=== PATIENT | male | born 1960 | race Caucasian/White ===

== ENCOUNTER 2017-01-24 15:57 | Inpatient (IN) | payer BC ==
--- NOTE | ~2017-01-24 | CR72 ---
[facility]. [facility] A Service of [facility] & [facility] RADIOLOGY TEXT RESULTS PATIENT: BIRD BROTHERS LOCATION: [facility] : 60 UNIT #: [id number] AGE: [address]: Fransisca Garcia MD SEX: M ORDER DR: [id number] [address] [address] [id number] MR#: [id number] Acc #: [id number] NAME: BIRD BROTHERS : 1960 SEX: M STUDY DATE/TIME: 01/24/2017 17:01 UNIT: SED ROOM: STUDY DESCRIPTION: CR Chest Single View Portable Attending Physician: Sydnie Means Pa-C Ordering Physician: Sydnie Means Pa-C Primary Care Physician: Yodit Tanner A.P.R.N. MEDICAL IMAGING REPORT This report is preliminary unless electronic signature is present. EXAM Portable chest x-ray, 01/24/2017 HISTORY Syncope. Passed out today, passed out yesterday, low blood pressure 84/50. Symptoms began yesterday. Prior history of melanoma. Nonsmoker. FINDINGS AP lordotic view of chest presented. No comparison chest radiographs. Partially visualized cervical spine fixation hardware grossly unremarkable. Surgical clips in the left axillary region. No acute-appearing bony abnormality. Heart hddobv-mx-ikibl limits of normal in size. Lungs well inflated. No evidence of acute pulmonary disease. No pleural effusion or pneumothorax. No suspicious nodule. Dictated by... Ernie Meyer M.D. THIS IS AN ELECTRONICALLY VERIFIED REPORT Ernie Meyer M.D. at 01/25/2017 12:11 PM EMORY/katherine TD: 01/25/2017 00:48 JOB #: [id number] MEDICAL IMAGING REPORT Page 1 of 1
--- NOTE | ~2017-01-24 | DS ---
Unit #: [id number] #: [id number] Patient: BIRD BROTHERS [id number] [facility]. [place], [place] [address] [id number] Alicia MR#: [id number] NAME: BIRD BROTHERS ROOM: 573 Age: 56 Sex: M Admission Date: 01/24/2017 : 1960 Discharge Date: 01/27/2017 Attending Physician: Fransisca Garcia M.D. Primary Care Physician: Yodit Tanner A.P.R.N. DISCHARGE SUMMARY ADDENDUM HOSPITAL COURSE The patient remained overnight given his afternoon sodium level had only increased to 125. A urine osmolality indicated perhaps some underlying SIADH, though I do think perhaps solute intake is also an issue. He was placed on a fluid restriction and this morning sodium level is 129. I have instructed him to hold off a little bit on his fluid and take at home except for when he is at work which is a very hot environment and to cut down on his alcohol. Otherwise, he was discharged home on the with medications as dictated yesterday. Dictated by... Fransisca Garcia M.D. [facility]/roe TD: 01/30/2017 09:51 JOB #: [id number] DISCHARGE SUMMARY Page 1 of 1 X Fransisca Garcia MD DISCHARGE SUMMARY
--- NOTE | ~2017-01-24 | EKG ---
PATIENT: BIRD BROTHERS UNIT #: [id number] Ventricular Rate: 71 BPM Atrial Rate: 71 BPM P-R Interval: 162 ms QRS Duration: 88 ms Q-T Interval: 422 ms QTC Calculation(Bezet): 458 ms P [place]: 30 degrees Calculated R [place]: 42 degrees Calculated T [place]: 43 degrees Diagnosis Line: Sinus rhythm with occasional Premature ventricular Diagnosis Line: complexes Diagnosis Line: Possible Left atrial enlargement Diagnosis Line: Borderline ECG Diagnosis Line: No previous ECGs available Diagnosis Line: Confirmed by FARZANA ANG MD ([id number]) on Diagnosis Line: 01/26/2017 4:49:27 PM INTERPRETING MD: ASHIA CASTRO
--- NOTE | ~2017-01-24 | DS ---
Unit #: [id number] #: [id number] Patient: BIRD BROTHERS [id number] [place], [place] [address] [id number] Alicia MR#: [id number] NAME: BIRD BROTHERS. ROOM: 573 Age: 56 Sex: M Admission Date: 01/24/2017 : 1960 Discharge Date: 01/26/2017 Attending Physician: Fransisca Garcia M.D. Primary Care Physician: Yodit Tannre A.P.R.N. DISCHARGE SUMMARY PRINCIPAL DIAGNOSES 1. Hyponatremia, multifactorial. 2. Acute kidney injury, prerenal. Discharge creatinine 1.0. 3. Orthostatic hypotension. 4. Hypokalemia, now resolved. 5. Benign prostatic hypertrophy with urinary retention. 6. Chronic alcohol abuse without evidence of withdrawal. 7. History of hypertension now off of antihypertensives. 8. Near syncope secondary to orthostatic hypotension. 9. Psoriasis maintained on methotrexate. 10. Degenerative joint disease. CONSULTANTS None. PROCEDURE Chest x-ray, on January 24, 2017, with lordosis noted. No other acute findings. CLINICAL HISTORY AND HOSPITAL COURSE Mr. Brothers is a nice, 56-year-old male. He presented to the ER with a few episodes of syncope and near syncope on the day of presentation. In the emergency department, the patient was found to have an elevated creatinine of 2.0. His sodium was also found to be significantly low at 115. He was also hypokalemic. Chest x-ray was done and was unremarkable. The patient was subsequently admitted for further evaluation. The patient was placed on low dose IV fluids and his sodium did increase slowly. This morning at time of dictation sodium is now up to 124. His associated acute kidney injury has resolved. Urine osmolarity is currently pending. However, I suspect the patient's hyponatremia is multifactorial including some hypovolemic hyponatremia which, at this point, is currently resolved in addition to poor (1) intake due to his chronic alcohol use, as outlined below. He may have some component perhaps of SIADH. Working in the heat is likely also a component. I am going to discontinue IV fluids and recheck a sodium level later today. The patient has been eating. In regards to patient's chronic alcohol abuse, he has had no evidence of alcohol withdrawal here. The patient states he drinks six beers daily but apparently his son contacted nursing and he drinks more like 12 beers daily. I have discussed with him need for alcohol cessation and not having any more than two drinks per day. This was also discussed with the Unit #: [id number] #: [id number] Patient: BIRD BROTHERS patient's mother. In regards to the patient's near syncope, again, he was significantly dehydrated upon presentation and was found to have orthostatic hypotension. Even this morning he has some positive orthostatic hypotension but is asymptomatic. I am going to hold his antihypertensives upon discharge and orthostatics can be done in the office by his primary care provider with reinitiation of lisinopril if necessary. I will note the patient did not have any stigmata of chronic liver disease secondary to his alcohol use. The patient also had significant urinary retention with post void residuals of greater than 400. He was started on Flomax and post void residual have gradually decreased. We will continue him on Flomax and this can be followed up in the office. Assuming sodium this afternoon is more around 128, 129, I think the patient can be discharged home later today. DISCHARGE CONDITION Stable. DISCHARGE STATUS Discharged to home. DISCHARGE MEDICATIONS 1. Flomax 0.4 mg daily. 2. Betamethasone dipropionate cream 0.05% applied to patches twice daily p.r.n. 3. Methotrexate 2.5 mg every seven days. 4. A daily multivitamin. 5. Folic acid 1 mg daily. Of note, again, I am discontinuing the patient's lisinopril at this point. DISCHARGE INSTRUCTIONS 1. The patient was instructed to follow a regular diet, to not drink anymore than two alcoholic drinks daily and we need review size of what constitutes an alcoholic beverage. 2. He can increase his activity as tolerated. FOLLOWUP The patient will follow up with his primary care provider, Kai PowellP.RJun, in one week, can repeat basic metabolic panel at that time and orthostatics in the office to reevaluate need for lisinopril. Time spent on discharge-32 minutes. Dictated by... Fransisca Garcia M.D. BROCK/lola TD: 01/27/2017 09:56 JOB #: [id number] Unit #: [id number] #: [id number] Patient: BIRD BROTHERS A DISCHARGE SUMMARY Page 1 of 1 X Fransisca Garcia MD X DISCHARGE SUMMARY
--- NOTE | ~2017-01-24 | HP ---
Unit #: [id number] #: [id number] Patient: BIRD BROTHERS [id number] [facility]. [place], [place] [address] [id number] MR#: [id number] NAME: BIRD BROTHERS. ROOM: 561 Age: 56 Sex: M Admission Date: 01/24/2017 : 1960 Attending Physician: Rocío Meadows M.D. Primary Care Physician: Kai BowlesPTundeRMeghan. HISTORY AND PHYSICAL CHIEF COMPLAINT Hyponatremia, near syncope, acute kidney injury, hypokalemia. HISTORY This 56-year-old male with hypertension, psoriasis, was transferred from [facility] emergency department for near syncope. The patient states that he was in his usual state of health until last week when he blacked out at work and was caught by a co-worker. Over the past two days, also blacked out. He was sent to [facility] emergency department where he was orthostatic. Labs are notable for acute kidney injury, hyponatremia, hypokalemia. The patient drinks probably about a six-pack a night of beer and a glass or two of wine. Denies withdrawal symptoms. In addition, he does take ibuprofen and, over the past two months, Zestoretic. At [facility] ER, he was bolused with a liter of saline, given 40 mEq of potassium, folic acid, thiamine and multivitamin. His initial blood pressure was 92/58 and has improved to 136/72. Repeat labs are ordered stat. Of note, specific gravity is low, although patient does work in the heat. PAST MEDICAL HISTORY 1. Hypertension. 2. Melanoma removed from arm 25 years ago. 3. DJD. 4. Psoriasis. 5. C-spine surgery. 6. Left leg varicose vein stripping. ALLERGIES None. HOME MEDICATIONS 1. Steroid cream, Sernivo, 0.05% as needed. 2. Methotrexate 2.5 mg, six tablets every Monday. 3. Folic acid 1 mg daily. 4. P.r.n. ibuprofen. 5. Zestoretic 10/12.5 mg daily for the past two months. FAMILY HISTORY Negative for kidney disease. SOCIAL HISTORY The patient lives with his mother. He drinks about a six-pack a day plus one to two glasses of wine. He is a lifelong nonsmoker. Unit #: [id number] #: [id number] Patient: BIRD BROTHERS A REVIEW OF SYSTEMS Notable for hypertension, melanoma removed, DJD, psoriasis, above mentioned surgeries, recent blackout episodes, some decreased urinary output. All other systems were reviewed and are otherwise negative. PHYSICAL EXAMINATION GENERAL APPEARANCE: Pleasant 56-year-old male who seems to be very mildly confused. VITAL SIGNS: His initial blood pressure was 92/58 with a heart rate of 83 but has improved to a blood pressure of 136/72. The patient was orthostatic earlier, and his systolic blood pressure dropped to 84 with standing. Temperature 98, pulse 83, respirations 16, O2 saturation 99% on room air. HEENT: Eyes PERRLA. Extraocular muscles are intact. Pharynx is benign. NECK: Supple without adenopathy or thyromegaly. CHEST: Clear. CARDIAC: Normal S1 and S2 without S3, S4 or murmur. ABDOMEN: Bowel sounds are present. There is a healing superficial burn over the abdomen, perhaps some mild hepatomegaly. Nontender, mildly distended. EXTREMITIES: Without clubbing, cyanosis or edema. Pedal pulses are present. Chronic venous stasis changes noted over the left leg. Psoriasis noted on the skin. NEUROLOGIC: The patient is awake, alert. He seems to be very mildly confused on my exam but he is awake and alert. Cranial nerves are intact. He has equal strength throughout. DIAGNOSTIC STUDIES LABORATORY: Admission labs - hematocrit is 44.6, MCV is 106.7, normal white count and platelet count. Cardiac markers are negative. SMA-12 - creatinine is 2 without previous values for comparison. Sodium 115, potassium 2.8, chloride is 66, CO2 33. Alcohol level less than 5. Urine tox screen negative. Urinalysis - specific gravity less than 1.005, otherwise negative. IMAGING: Chest x-ray - no acute disease. CARDIOVASCULAR: EKG - sinus rhythm, rate 70. Occasional PVC. Cardiac markers are negative. ASSESSMENT 1. Hyponatremia, likely related to hydrochlorothiazide from Zestoretic and beer potomania. 2. Hypokalemia, again related to the above. 3. Acute kidney injury, on Zestoretic and p.r.n. ibuprofen. 4. Elevated MCV, likely related to alcohol, but will check B12 level and folic acid level. 5. Near syncope/syncope: Patient was orthostatic. 6. History of hypertension with low blood pressure initially, now Unit #: [id number] #: [id number] Patient: BIRD BROTHERS improved after a liter of saline. 7. Degenerative joint disease. 8. Psoriasis, on methotrexate. PLANS 1. Low dose saline drip, but will repeat labs stat. Check magnesium level. 2. Discontinue Zestoretic and ibuprofen. Hole methotrexate. 3. Obtain TSH and obtain urine sodium. 4. Recheck orthostatics in the morning. 5. Replace potassium, check magnesium. 6. Benzos and vitamins. 7. Chest postvoid bladder scan. 8. B12 level, and folic acid level. 9. Will check CPK. Dictated by Ema Grewal M.D. AML/df TD: 01/25/2017 05:17 JOB #: [id number] HISTORY AND PHYSICAL Page 1 of 1 X Ema Grewal MD X HISTORY AND PHYSICAL
[~2017-01-24 15:57] MED LIST: BACITRACIN OP3.5 GM TOP; NO MEDICATIONS; TYLENOL #3 PO
[2017-01-24] MEDS ORDERED: ZESTRIL10 M1 PO (16:09)
[2017-01-24 16:37] LABS: POC - CKMB 3.8 ng/mL (0.0-7.9); POC - TROPONIN <0.05 ng/mL (<=0.05)
[2017-01-24 16:39] LABS: BASOPHIL% 0.5 % (0-2.5); EOSINOPHIL# 0.2 X10e3 (0-0.7); HEMATOCRIT 44.6 % (38.0-50.0); HEMOGLOBIN 16.2 gm/dL (13.0-16.0); LYMPHOCYTE# 0.6 X10e3 (1.0-3.5); LYMPHOCYTE% 6.2 % (17.0-45.0); MEAN CELL VOLUME 106.7 FL (83-96); MEAN CORPUSCULAR HEMOGLOBIN 38.8 PG (28-34); MEAN CORPUSCULAR HGB CONC 36.3 g/dL (30-36); MEAN PLATELET VOLUME 7.2 FL (6.5-11.5); MONOCYTE# 0.5 X10e3 (0-1.0); MONOCYTE% 5.5 % (3.0-12.0); NEUTROPHIL# 7.8 X10e3 (1.5-7.1); NEUTROPHIL% 85.8 % (40-75); PLATELET COUNT 226 X10e3 (140-420); RED BLOOD COUNT 4.18 X10e (3.90-5.60); WHITE BLOOD COUNT 9.1 X10e3 (4.0-10.5)
[2017-01-24 16:41] LABS: DIFF IND NO
[2017-01-24 17:03] LABS: ALBUMIN SERUM 3.8 g/dL (3.5-5.0); BILIRUBIN, DIRECT 0.3 mg/dL (0.0-0.2); BILIRUBIN,INDIRECT 0.5 mg/dL (0.0-0.9); BILIRUBIN,TOTAL 0.8 mg/dL (0.2-2.0); CALCIUM SERUM 8.4 mg/dL (8.4-10.2); GLOM FILT RATE Estimated 36.2 mL/min (>60); PROTEIN TOTAL SERUM 7.7 g/dL (6.0-8.3)
[2017-01-24 17:05] LABS: POTASSIUM 2.8 mmol/L (3.5-5.1)
[2017-01-24 18:03] LABS: URINE APPEARANCE CLEAR; URINE BILIRUBIN NEG (NEG); URINE COLOR YELLOW; URINE GLUCOSE 50 MG/DL (NORM); URINE KETONE NEG (NEG); URINE LEUKOCYTE ESTERASE NEG (NEG); URINE NITRATE NEG (NEG); URINE PH 5.5 (5-8); URINE PROTEIN NEG (NEG); URINE SOURCE CLEAN CATCH; URINE SPECIFIC GRAVITY <=1.005 (1.003-1.035); URINE UROBILINOGEN 0.2 MG/DL (NORM)
[2017-01-24 18:05] LABS: MICRO INDICATED? NO; URINE BLOOD NEG (NEG)
[2017-01-24 18:14] LABS: AMPHETAMINE NEG (NEG); BARBITURATES NEG (NEG); BENZODIAZEPINES NEG (NEG); COCAINE NEG (NEG); MARIJUANA NEG (NEG); OPIATES NEG (NEG); TRICYCLIC ANTIDEPRESSANTS NEG (NEG); U METHADONE NEG (NEG)
[2017-01-24] MEDS ORDERED: [UNRECOGNIZED DRUG - OTHER] TOP (23:32)
[2017-01-24] MEDS ORDERED: FOLIC ACID1 MG PO (23:32)
[2017-01-24] MEDS ORDERED: METHOTREXATE2.5 MG PO (23:33)
[2017-01-24 23:42] LABS: BUN/CREATININE RATIO 10.58; CALCIUM SERUM 8.2 mg/dL (8.4-10.2); CREATININE SERUM 1.7 mg/dL (0.6-1.4); GLOM FILT RATE Estimated 44.1 mL/min (>60); MAGNESIUM 2.1 mg/dL (1.6-3.0); POTASSIUM 3.5 mmol/L (3.5-5.1)
[2017-01-25] LABS: %MB 2.9 % (0.0-4.0); MB 6.8 ng/ml
[2017-01-25 05:52] LABS: PARTIAL THROMBOPLASTIN TIME 30.4 SECONDS (23.5-31.3); PROTHROMBIN TIME (PATIENT) 11.1 SECONDS (10.0-11.7)
[2017-01-25 05:53] LABS: BASOPHIL% 0.7 % (0-2.5); EOSINOPHIL# 0.2 X10e3 (0-0.7); EOSINOPHIL% 4.4 % (0.0-7.0); HEMATOCRIT 40.4 % (38.0-50.0); LYMPHOCYTE# 0.7 X10e3 (1.0-3.5); LYMPHOCYTE% 13.2 % (17.0-45.0); MEAN CELL VOLUME 106.9 FL (83-96); MEAN CORPUSCULAR HEMOGLOBIN 37.5 PG (28-34); MEAN PLATELET VOLUME 6.9 FL (6.5-11.5); MONOCYTE# 0.2 X10e3 (0-1.0); MONOCYTE% 3.8 % (3.0-12.0); NEUTROPHIL# 4.2 X10e3 (1.5-7.1); NEUTROPHIL% 77.9 % (40-75); PLATELET COUNT 176 X10e3 (140-420); RED BLOOD COUNT 3.78 X10e (3.90-5.60); RED CELL DISTRIBUTION WIDTH 15.8 % (11.0-15.5); WHITE BLOOD COUNT 5.3 X10e3 (4.0-10.5)
[2017-01-25 06:07] LABS: DIFF IND YES; HEMOGLOBIN 14.2 gm/dL (13.0-16.0)
[2017-01-25 06:41] LABS: THYROID STIMULATING HORMONE 1.8 uIU/ml (0.34-5.60)
[2017-01-25 06:48] LABS: FREE THYROXIN (T4) 1.05 ng/dL (0.58-1.64)
[2017-01-25 06:55] LABS: FOLATE (FOLIC ACID) >23.3 ng/mL (>5.8)
[2017-01-25 07:25] LABS: BUN/CREATININE RATIO 12.14; CREATININE SERUM 1.4 mg/dL (0.6-1.4); GLOM FILT RATE Estimated 55.8 mL/min (>60)
[2017-01-25 07:36] LABS: PLATELET ESTIMATE NORMAL (NORMAL)
[2017-01-25 07:37] LABS: ANISOCYTOSIS SL
[2017-01-25 07:47] LABS: %MB 2.2 % (0.0-4.0); MB 2.3 ng/ml
[2017-01-25 14:46] LABS: BUN/CREATININE RATIO 13.84; CALCIUM SERUM 8.1 mg/dL (8.4-10.2); CREATININE SERUM 1.3 mg/dL (0.6-1.4); POTASSIUM 4.2 mmol/L (3.5-5.1)
[2017-01-26 06:52] LABS: CALCIUM SERUM 7.8 mg/dL (8.4-10.2); GLOM FILT RATE Estimated 83.8 mL/min (>60); POTASSIUM 3.7 mmol/L (3.5-5.1)
[2017-01-26 15:31] LABS: BUN/CREATININE RATIO 10.9; CALCIUM SERUM 8.1 mg/dL (8.4-10.2); CREATININE SERUM 1.1 mg/dL (0.6-1.4); GLOM FILT RATE Estimated 74.7 mL/min (>60); POTASSIUM 4.2 mmol/L (3.5-5.1)
[2017-01-27 11:22] LABS: CALCIUM SERUM 8.7 mg/dL (8.4-10.2); GLOM FILT RATE Estimated 83.8 mL/min (>60); POTASSIUM 4.6 mmol/L (3.5-5.1)
[2017-01-27] MEDS ORDERED: FLOMAX0.4 M1 PO (11:49)
[2017-01-27] MEDS ORDERED: MULTI VITAMIN1 EACH PO (11:52)
== END 2017-01-27 14:05 | disposition home or self-care (01) | DRG 683 ==
LOC: SED 15:57 → C5B 19:16 → SED 19:16 → C5C 23:30 → C5B 23:30 → C5C 01-25 11:08 → C5B 01-25 11:08 → C5C 01-27 14:05
PROVIDERS: Internal Medicine; Physician Assistant Medical
DX: N17.9 Acute kidney failure, unspecified (principal); E87.1 Hypo-osmolality and hyponatremia; I10 Essential (primary) hypertension; E87.6 Hypokalemia; M19.90 Unspecified osteoarthritis, unspecified site; L40.9 Psoriasis, unspecified; Z85.820 Personal history of malignant melanoma of skin; I95.1 Orthostatic hypotension; F10.10 Alcohol abuse, uncomplicated; N40.1 Benign prostatic hyperplasia with lower urinary tract symptoms; R33.8 Other retention of urine; Y90.0 Blood alcohol level of less than 20 mg/100 ml
CPT/HCPCS: 36415; 71010; 80048; 80076; 80307; 81003; 82550; 82553; 82607; 82746; 82947; 83735; 83935; 84300; 84439; 84443; 84484; 85025; 85610; 85730; 93005; 96360; 97161; 97165; 99285; G0480; J3475